=== PATIENT | female | born 1935 | race Caucasian/White ===

== ENCOUNTER 2019-08-18 23:07 | Observation (INO) ==
[2019-08-19 00:25] LABS: Basophils # (auto) 0.05 K/uL (0-0.2); Basophils % (auto) 0.7 %; Eosinophils # (auto) 0.14 K/uL (0-0.5); Eosinophils % (auto) 1.9 %; Hematocrit (blood only) 40.6 % (37-47); Hemoglobin 13.7 g/dL (12.0-16.0); Immature Granulocytes # (auto) 0.02 K/uL (0.00-0.02); Immature Granulocytes % (auto) 0.3 %; Lymphocytes # (auto) 2.27 K/uL (1.2-3.4); Lymphocytes % (auto) 31.4 %; Mean Corpuscular Hemoglobin 31.9 pg (25-34); Mean Corpuscular Hgb Conc 33.7 g/dL (32-36); Mean Corpuscular Volume 94.4 fL (80-100); Mean Platelet Volume 11.1 fL (7.4-10.4); Monocytes # (auto) 0.56 K/uL (0.11-0.59); Monocytes % (auto) 7.7 %; Neutrophils # (auto) 4.19 K/uL (1.4-6.5); Platelet Count 184 K/uL (130-400); RDW Coefficient of Variation 14.8 % (11.5-14.5); RDW Standard Deviation 50.8 fL (36.4-46.3); White Blood Count 7.23 K/uL (4.8-10.8)
[2019-08-19 00:42] LABS: Blood Urea Nitrogen 15 mg/dl (7-18); Calcium 9.4 mg/dl (8.5-10.1); Carbon Dioxide 27 mmol/L (21-32); Chloride 109 mmol/L (98-107); Creatinine Clr Calc Pharmacy 46.4 ml/min; Est GFR (African American) 77.9; Est GFR (Non-African American) 67.2; Glucose 103 mg/dl (70-99); Magnesium 2.2 mg/dl (1.8-2.4); Potassium 3.7 mmol/L (3.5-5.1); Sodium 143 mmol/L (136-145)
[2019-08-19 00:47] LABS: Troponin I < 0.015 ng/ml (0-0.045)
[2019-08-19 00:56] LABS: Appearance Urine Clear (Clear); Bilirubin Urine Negative (Negative); Blood Urine Negative (Negative); Color Urine Yellow; Glucose Urine UA Negative (Negative); Ketones Urine Negative (Negative); Leukocyte Esterase Urine Negative (Negative); Nitrite Urine Negative (Negative); Protein Urine Negative (Negative); Urobilinogen Urine Negative (Negative)
[2019-08-19] MEDS ORDERED: ONDANSETRON INJ 2 MG/ML 2 ML VIAL IV PRN (03:14)
[2019-08-19] MEDS ORDERED: NITROGLYCERIN SL 0.4 MG/TAB TAB SL PRN (03:14)
[2019-08-19] MEDS ORDERED: PNEUMOCOCCAL ADMINISTRATION CHARGE ONE (03:23)
[2019-08-19] MEDS ORDERED: PNEUMOCOCCAL POLYSACCHARIDES 25 MCG/0.5 ML VIAL/SYR IM ONE (03:23)
--- NOTE | 2019-08-19 03:39 | History and Physical Report ---
DATE OF ADMISSION: 08/19/2019 CHIEF COMPLAINT: Chest pain and shortness of breath on exertion. HISTORY OF PRESENT ILLNESS: This is an 84-year-old female with past medical history significant for hyperlipidemia, impaired fasting glucose, hypertension, not on any medications currently, generalized osteoarthritis, osteoporosis, hard of hearing, history of dementia, history of depression, anxiety disorder, history of pulmonary embolism, not on anticoagulation currently, who lives in a senior apartment. She went to a show with her daughter and she said she climbed lot of steps over there and she got exhausted. As per the Emergency Room physician, she complained of chest pain and shortness of breath at that time and EMS was called in and she was hypoxic, requiring oxygen, and she was brought into the hospital. Currently, resting comfortably, hemodynamically stable, and saturating fine on room air. Blood pressure is somewhat running high. Labs are okay. Troponin is negative. EKG shows chronic left bundle branch block. Currently, the patient denies any chest pain, no shortness of breath, no nausea, no vomiting, no abdominal pain, no headache, no dizziness, no blurred vision, no runny nose, no sore throat, no dysphagia. Appetite is okay. Sleeps okay. No rash, no swelling in the legs. Ambulating okay in the ER. Normal bowel and bladder movements. ALLERGIES: TO VICODIN, BACTRIM, DILAUDID, PREDNISONE, SULFA ANTIBIOTICS. PAST MEDICAL HISTORY: As mentioned above. PAST SURGICAL HISTORY: Cataract surgery, colonoscopy with biopsy, cardiac catheterization, appendectomy in 2005 that showed normal appendectomy, tonsillectomy, revision of total hip joint surgery, left total hip replacement, total hysterectomy. MEDICATIONS: The patient is on simvastatin 20 mg p.o. at bedtime, omega fatty acids 1200 mg p.o. daily, aspirin 81 mg p.o. b.i.d., multivitamins daily. FAMILY HISTORY: Significant for father of pneumonia, mother of old age. SOCIAL HISTORY: , lives in a senior apartment. No smoking history. No alcohol use, no drug use. REVIEW OF SYSTEMS: As per HPI. Rest of the review of systems negative. PHYSICAL EXAMINATION: GENERAL: The patient is old and frail, not in acute distress. VITAL SIGNS: Temperature 36.6, pulse 58, respiratory rate 20, blood pressure 177/106, oxygen 98% on room air. HEENT: No pallor, no icterus. Pupils equal, round, and reactive to light. NECK: No JVD, no neck masses, no carotid bruit. CARDIOVASCULAR: S1, S2 heard, regular rate and rhythm. No murmur, no gallop. RESPIRATORY SYSTEM: Normal AP diameter. No accessory muscle use. No wheezing, no crackles. ABDOMEN: Soft, bowel sounds present, nontender. No distention. CENTRAL NERVOUS SYSTEM: Cranial nerves II-XII grossly intact. Nonfocal. EXTREMITIES: No edema, no erythema. LABORATORY DATA: WBC 7.2, hemoglobin 13.7, hematocrit 40.6, platelets 184. Sodium 143, potassium 3.7, chloride 109, bicarbonate 27, BUN 15, creatinine 0.8, serum glucose 103, magnesium 2.2. Troponin I less than 0.015. Urinalysis negative. IMAGING DATA: Chest x-ray, no acute findings. EKG: Left bundle branch block with rate of 61. ASSESSMENT AND PLAN: This is an 84-year-old female who presents with chest pain and shortness of breath on exertion. 1. Chest pain and shortness of breath on exertion. The patient went to a show with her daughter and climbed many steps and states she felt exhausted. She denies chest pain or shortness of breath. As per the ER, at that time she had some chest pain and she was hypoxic, requiring oxygen. Currently stable. Initial workup, EKG shows left bundle branch block which seems to be chronic and troponins are negative. We will observe in tele floor. Serial cardiac enzymes, echocardiogram,. NPO.. Consult cardiology for further recommendations. 2. History of hypertension, not on any medication. Blood pressure is high here, it could be situational. We will monitor. If consistently high, may need blood pressure medication on discharge. Await cardiac input. 3. Hyperlipidemia. Continue statin. Follow lipid profile. 4. History of impaired fasting glucose. We will follow HbA1c levels, currently n.p.o. 5. History of pulmonary emboli. As per the PCP notes questionable hx of PE and was on blood thinners in the past but no longer currently. 6. History of thyroid nodule, follow up with primary care physician. 7. History of depression and anxiety, currently not on any medication. Follow with PCP. 8. Deep venous thrombosis prophylaxis, sequential compression devices. DISPOSITION: Monitor in tele floor. Expect to discharge home and follow with family doctor. Level 1 full code. Addendum: BP running high. Added nitro paste. To monitor. MTDD
--- NOTE | 2019-08-19 04:44 | Emergency Department Note ---
Entered by Josh Olsen acting as a scribe for Pieter Kinney MD ED Provider Note Name: Paty Payne Age: 84 Arrives Via: Walk in Informant: Patient, nurse CC: SOB HPI: The patient is an 84 year old female who presents to the emergency depa rtment with complaints of constant SOB beginning tonight. The patient states that she was going up stairs too fast tonight at a play, and she notes that she became lightheaded and SOB. She also complains of chest heaviness and leg swelling. Per nurse, EMS could not get an oxygen saturation on the patient and she reports that the patient was placed on 6L of oxygen at that time. The patient denies any urinary burning, diarrhea, fever, chills, cough, rhinorrhea, abdominal pain, and back pain. She states that she has a history of UTIs, high cholesterol, and a PE, but she notes that she does not have a history of diabetes, hypertension, and stroke. She reports that her last UTI was four months ago. The patient states that her parents did not have any lung and heart problems. She notes that she takes two baby aspirin a day, and she denies any cigarette use. She reports that she received a flu shot this year. ROS: See above HPI for pertinent positives & negatives. A total of 10 systems reviewed and were otherwise negative. Past Medical History: UTI, high cholesterol, PE Past Surgical History: none Family History: None Social History: Does not use cigarettes, lives alone Home Medications: Aspirin, Simvastatin Allergies: Acetaminophen, hydrocodone, hydromorphone, morphine Physical: Vitals: BP 188/80, Pulse 64, Resp 18, Temp 97.9 F, O2 Sat 99 Exam: GENERAL: Patient is elderly appearing and in minimal distress. EYES: No scleral icterus, unremarkable pupils. ENT: Mucous membranes moist, no nasal congestion. NECK: No masses appreciated, no meningismus, trachea is midline. RESPIRATORY: No dyspnea. No wheeze, no rhonchi. Mild crackles to the bilateral lower lungs. CARDIOVASCULAR: Regular rate and rhythm. No murmurs, rubs, gallops appreciated. GASTROINTESTINAL: Abdomen soft, non-tender, no peritonitis. Bowel sounds positive. No masses appreciated. BACK: No midline tenderness, no CVA tenderness EXTREMITIES: Normal motion all extremities, no cyanosis. Trace edema to the bilateral lower legs. NEUROLOGIC: Alert and oriented, no acute motor or sensory deficits, no focal w eakness, cranial nerves grossly intact. SKIN: No rash, no jaundice, no diaphoresis. ED Course: Prior Medical Record, Triage/Nursing Notes, Medications, Allergies reviewed by Me 2331: The patient was evaluated in room C9. A complete history and physical exam was performed. 0104: Upon reevaluation, the patient is stable. She is noting pressure in her mid throat that does not get better with swallowing. I discussed the findings and the treatment plan with the patient. She expresses agreement and understanding. She is agreeable to hospitalization for cardiac rule out. A rep eat EKG was paged. I spoke with Dr. Coombs of the [facility] Hospitalist Service. The patient will be evaluated for further management. Vital Signs: reviewed and remarkable for HTN Labs: Reviewed and remarkable for wnl Imaging: CHEST X-RAY: X ray results are stated below per my interpretation: Chest: 1 view: No infiltrate, no effusion, normal cardiac border. EKG 1: Per My Interpretation: Indication Shortness of breath: NSR 62 bpm, qtc 477. LBBB. No Ectopy. No Ischemia. Compared to EKG from [facility] 12/17/18, no significant changes other than mild increase in LBBB. Cardiac Monitoring: An Order was placed for continuous cardiac monitoring. Ther monitor shows a rate of 60 with a normal sinus rhythm. Consults: 0104: I reviewed the patient's case with Dr. Coombs - Hospitalist, [facility]. He will evaluate the patient for further management. Blood pressure: Elevated - Will be monitored by hospitalist. Disposition: Hospitalization Differential: Cardiac Ischemia (STEMI, NSTEMI, Unstable Angina, etc), Aortic Dissection, Arrhythmia, Pulmonary Embolism, Pneumonia, Pneumothorax, MSK, Infectious, Pericarditis/Myocarditis, Esophageal Rupture, Gastrointestinal, amongst other pathologies entertained. Medical Decision Making: Pleasant 84 yr old female with no CAD history and just history of DLP and remote history of PE arrives following significant shortness of breath and some chest pain with exertion this evening. No current symptoms. Arrives with EMS with ASA earlier. EMS unable to get O2 sat en route but she has normal sats here. She has no current chest discomfort nor shortness of breath. BP elevated though she notes it is usually low. No evidence of dissection. Symptoms do not seem consistent with PE and without tachy nor hypoxia will hold off on PE scan at this time. Initial trop negative. EKG with LBBB which appears to be in previous EKG from epic system. Will need to come in for cardiac rule out. Impression: Chest pain with exertion, Shortness of breath on exertion Pieter Kinney MD The scribe's documentation has been prepared under my direction and personally reviewed by me in its entirety. I confirm that the note above accurately reflects all work, treatment, procedures, and medical decision making performed by me. Impression & Plan Chest pain on exertion, Shortness of breath on exertion Past Med/Surg History Medical History (Updated 08/19/19 @ 01:22 by Josh Olsen) High cholesterol Pulmonary embolism UTI (urinary tract infection) Family History (Updated 08/19/19 @ 00:33 by Josh Olsen) Other No significant family history Social History (Updated 08/19/19 @ 00:33 by Josh Olsen) Preferred Language: Ukrainian Communication Ability: Effective Study Director Required: No Current Living Situation: Alone Other Information That Helps Us Care for You: No Feels Safe at Home: Yes Safety Concerns: Feels Safe At This Time Smoking Status: Never smoker Hx Alcohol Use: No Results & Data Vital Signs Vital Signs - 24 hr 08/18/19 23:00 08/18/19 23:35 08/19/19 00:43 Temperature 36.6 C Temperature Source Oral Pulse Rate 64 Pulse Rate [Apical] 59 L Pulse Rhythm [Apical] Regular Respiratory Rate 18 16 Respiratory Effort / Characteristics Non-Labored Spontaneous Non-Labored Spontaneous Respiratory Depth Normal Normal Respiratory Pattern Regular Blood Pressure 188/80 H Blood Pressure [Right Arm] 159/87 H Blood Pressure Mean 116 Blood Pressure Mean [Right Arm] 111 Blood Pressure Position Sitting Blood Pressure Position [Right Arm] Lying Pulse Oximetry 95 99 99 Oxygen Delivery Method Room Air Room Air Room Air Sepsis Recent Fever Within 48 Hours No Sepsis New/Unexplained Change in Mental Status No Sepsis Action Taken by Nursing No Action Required 08/19/19 02:00 Temperature Temperature Source Pulse Rate Pulse Rate [Apical] 58 L Pulse Rhythm [Apical] Respiratory Rate 20 Respiratory Effort / Characteristics Non-Labored Spontaneous Respiratory Depth Normal Respiratory Pattern Blood Pressure Blood Pressure [Right Arm] 177/106 H Blood Pressure Mean Blood Pressure Mean [Right Arm] 129 Blood Pressure Position Blood Pressure Position [Right Arm] Sitting Pulse Oximetry 98 Oxygen Delivery Method Room Air Sepsis Recent Fever Within 48 Hours Sepsis New/Unexplained Change in Mental Status Sepsis Action Taken by [facility] Medications Current Medication List: was personally reviewed by me Laboratory Data Attestation: I reviewed the patient's lab results. Result diagrams: 08/19/19 00:10 08/19/19 00:10 Lab Results 08/19/19 08/19/19 08/19/19 Range/Units 00:10 00:10 00:42 WBC 7.23 (4.8-10.8) K/uL RBC 4.30 (4.2-5.4) M/uL Hgb 13.7 (12.0-16.0) g/dL Hct 40.6 (37-47) % MCV 94.4 (80-100) fL MCH 31.9 (25-34) pg MCHC 33.7 (32-36) g/dL RDW Std Deviation 50.8 H (36.4-46.3) fL RDW Coeff of Brittanie 14.8 H (11.5-14.5) % Plt Count 184 (130-400) K/uL MPV 11.1 H (7.4-10.4) fL Immature Gran % (Auto) 0.3 % Neut % (Auto) 58.0 % Lymph % (Auto) 31.4 % [place] % (Auto) 7.7 % Eos % (Auto) 1.9 % Baso % (Auto) 0.7 % Immature Gran # (Auto) 0.02 (0.00-0.02) K/uL Neut # (Auto) 4.19 (1.4-6.5) K/uL Lymph # (Auto) 2.27 (1.2-3.4) K/uL [place] # (Auto) 0.56 (0.11-0.59) K/uL Eos # (Auto) 0.14 (0-0.5) K/uL Baso # (Auto) 0.05 (0-0.2) K/uL Sodium 143 (136-145) mmol/L Potassium 3.7 (3.5-5.1) mmol/L Chloride 109 H (98-107) mmol/L Carbon Dioxide 27 (21-32) mmol/L Anion Gap 7.0 (3-11) BUN 15 (7-18) mg/dl Creatinine 0.80 (0.6-1.2) mg/dl Est Cr Clr Drug Dosing 46.4 ml/min Est GFR ( Amer) 77.9 Est GFR (Non-Af Amer) 67.2 BUN/Creatinine Ratio 19.0 (10-20) Glucose 103 H (70-99) mg/dl Calcium 9.4 (8.5-10.1) mg/dl Magnesium 2.2 (1.8-2.4) mg/dl Troponin I < 0.015 (0-0.045) ng/ml Urine Color Yellow Urine Appearance Clear (Clear) Urine pH 7.0 (4.5-7.5) Ur Specific [place] 1.010 (1.000-1.030) Urine Protein Negative (Negative) Urine Glucose (UA) Negative (Negative) Urine Ketones Negative (Negative) Urine Blood Negative (Negative) Urine Nitrite Negative (Negative) Urine Bilirubin Negative (Negative) Urine Urobilinogen Negative (Negative) Ur Leukocyte Esterase Negative (Negative) Discharge Plan Visit Data *Final* Discharge Date/Time: 08/19/19 02:59 Chief Complaint: Shortness of Breath/Dyspnea Stated Complaint: SHORT OF BREATH ED Provider: Pieter Kinney Discharge Problem: Chest pain on exertion, Shortness of breath on exertion Patient Disposition: Admitted As Inpatient Discharge Instructions Interventions: ED Discharge Assessment Last Done: 08/19/19 02:59 The scribe's documentation has been prepared under my direction and personally reviewed by me in its entirety. I confirm that the note above accurately reflects all work, treatment, procedures, and medical decision making performed by me.
[2019-08-19] MEDS ORDERED: NITROGLYCERIN 2% OINTMENT 30GM TUBE EXT SCH (06:15)
--- NOTE | 2019-08-19 06:28 | XRay Report ---
XR chest 1V portable HISTORY: 84 years-old Female CP acute atypical chest pain COMPARISON: None available TECHNIQUE: Portable AP view of the chest FINDINGS: Cardiac silhouette is mildly enlarged. There is no pneumothorax or overt pulmonary edema. Minimal ill -defined left basilar opacities. There is blunting of the costophrenic angles. Lungs are mildly hyper inflated. No lobar airspace consolidation. Degenerative changes of the shoulders and spine. IMPRESSION: 1. Cardiomegaly without overt pulmonary edema. 2. Blunting of the costophrenic angles may be secondary to atelectasis versus trace effusions. ACT 112: Negative or not required by law. The above report was generated using voice recognition software. It may contain grammatical, syntax o r spelling errors. Electronically signed by: Mauricio Jones M.D. 08/19/2019 6:27 AM
[2019-08-19 07:04] LABS: Chol HDL Ratio 3; Cholesterol 143 mg/dl (0-200); HDL Cholesterol 58 mg/dl; LDL Cholesterol Calculated 69 mg/dl; Triglycerides 80 mg/dl (0-150); VLDL Cholesterol 16 mg/dl
[2019-08-19] MEDS ORDERED: CEROVITE ADV FORMULA TAB PO SCH (09:00)
[2019-08-19] MEDS ORDERED: ASPIRIN 81 MG ECTAB PO SCH (09:00)
[2019-08-19 09:28] LABS: Estimated Average Glucose 126 mg/dl
[2019-08-19] MEDS ORDERED: LOSARTAN POTASSIUM 25 MG TAB PO SCH (10:30)
--- NOTE | 2019-08-19 16:49 | Discharge Summary ---
Date of Service August 19, 2019 Admission HPI Per Admitting Provider This is an 84-year-old female with past medical history significant for hyperlipidemia, impaired fasting glucose, hypertension, not on any medications currently, generalized osteoarthritis, osteoporosis, hard of hearing, history of dementia, history of depression, anxiety disorder, history of pulmonary embolism, not on anticoagulation currently, who lives in a senior apartment. She went to a show with her daughter and she said she climbed lot of steps over there and she got exhausted. As per the Emergency Room physician, she complained of chest pain and shortness of breath at that time and EMS was called in and she was hypoxic, requiring oxygen, and she was brought into the hospital. Currently, resting comfortably, hemodynamically stable, and saturating fine on room air. Blood pressure is somewhat running high. Labs are okay. Troponin is negative. EKG shows chronic left bundle branch block. Currently, the patient denies any chest pain, no shortness of breath, no nausea, no vomiting, no abdominal pain, no headache, no dizziness, no blurred vision, no runny nose, no sore throat, no dysphagia. Appetite is okay. Sleeps okay. No rash, no swelling in the legs. Ambulating okay in the ER. Normal bowel and bladder movements. Admission Exam Per Admitting Provider GENERAL: The patient is old and frail, not in acute distress. VITAL SIGNS: Temperature 36.6, pulse 58, respiratory rate 20, blood pressure 177/106, oxygen 98% on room air. HEENT: No pallor, no icterus. Pupils equal, round, and reactive to light. NECK: No JVD, no neck masses, no carotid bruit. CARDIOVASCULAR: S1, S2 heard, regular rate and rhythm. No murmur, no gallop. RESPIRATORY SYSTEM: Normal AP diameter. No accessory muscle use. No wheezing, no crackles. ABDOMEN: Soft, bowel sounds present, nontender. No distention. CENTRAL NERVOUS SYSTEM: Cranial nerves II-XII grossly intact. Nonfocal. EXTREMITIES: No edema, no erythema. Principal Diagnosis Chest pain (not ACS) Discharge Exam GENERAL: Elderly and frail female sitting in bed , not in acute distress HEENT: NC/AT. No pallor, no icterus. Pupils equal, round, and reactive to light, EOMI NECK: No JVD, no neck masses, no carotid bruit. CARDIOVASCULAR: S1, S2 heard, regular rate and rhythm. No murmur, no gallop. RESPIRATORY SYSTEM: Normal AP diameter. No accessory muscle use. No wheezing, no crackles. ABDOMEN: Soft, bowel sounds present, nontender. No distention. CENTRAL NERVOUS SYSTEM: Alert and oriented x3, no facial asymmetry, speech fluent, moves extremities spontaneously EXTREMITIES: No edema, no erythema, moves extremities spontaneously Discharge Data Allergies Allergy/AdvReac Type Severity Reaction Status Date / Time acetaminophen [From Vicodin] Allergy Severe Vomiting Verified 08/19/19 01:48 hydrocodone [From Vicodin] Allergy Severe Vomiting Verified 08/19/19 01:48 hydromorphone [From Dilaudid] Allergy Severe Vomiting Verified 08/19/19 01:48 morphine Allergy Severe Vomiting Verified 08/19/19 01:48 Consultations 08/19/19 01:04 ED Decision to Admit Stat 08/19/19 03:14 Consult Case Management - Discharge Planning Routine 08/19/19 08:00 Consult Cardiology Routine Hospital Course (1) Chest pain on exertion: (2) Shortness of breath on exertion: (3) Left bundle branch block: (4) Physical deconditioning: This is an 84-year-old female who presents with chest pain and shortness of breath on exertion, not ACS, likely d/t physical deconditioning. Hx of LBBB. 1. Chest pain and shortness of breath on exertion. The patient went to a show with her daughter and climbed many steps and states she felt exhausted. She currently denies chest pain or shortness of breath. As per the ER, at that time she had some chest pain and she was hypoxic, requiring oxygen. Currently stable. Initial workup, EKG shows left bundle branch block which seems to be chronic and troponins are negative. observed on telemetry Serial cardiac enzymes - negative Echocardiogram obtained - normal LV syst. function, EF 60-65%, Grade 1 diastolic dysfunction. No significant valvular abnormality. Septal wall motion abnormality c/w LBBB, no other wall motion abnormality. Cardiology consulted for further recommendations - not ACS, recommend to follow up w/ PCP, PT 2. History of hypertension, not on any medication. Blood pressure is high here, it could be situational. We will monitor. If consistently high, may need blood pressure medication on discharge. Await cardiac input. 3. Hyperlipidemia. Continue statin. Follow lipid profile. 4. History of impaired fasting glucose. will monitor while inpt. 5. History of pulmonary emboli. As per the PCP notes questionable hx of PE and was on blood thinners in the past but no longer currently. 6. History of thyroid nodule, follow up with primary care physician. 7. History of depression and anxiety, currently not on any medication. Follow with PCP. 8. Deep venous thrombosis prophylaxis, sequential compression devices. Total Time Total Time Spent Total Time Spent (In Minutes): 40 Total Time Includes: Examination of the Patient, Discharge Planning, Medication Reconciliation and Communication With Other Providers Discharge Plan Discharge Items Patient Disposition: Home - Self-Care Reason For Visit: CHEST PAIN Discharge Diagnosis: Chest pain Activity: Resume your previous activity Activity Comment: as tolerated, ask for help as needed Non-emergency contact: Primary Care Provider Call non-emergency contact if: you have any medication questions and your symptoms worsen Follow-up/Referrals: Jakob Will MD [Primary Care Provider] - None Diet: Regular Addtl Attending Provider Instructions: Follow up with your primary care provider on 08/26/2019 at 12:45 AM. Check your blood pressure at home and keep a log of these numbers. Make sure to bring this log to your primary care doctor to your next appointment, so your blood pressure medications can be adjusted. Take new medication - Losartan, daily, for your blood pressure. Pending Studies at Discharge: No Stand-Alone Forms: My [facility] Medialive, Smoking Cessation Medications and DC Order Prescriptions: New losartan 25 mg Tablet 25 mg PO QAM 30 Days Qty: 30 RF: 0 Continued simvastatin 20 mg tablet 20 mg PO QPM RF: 0 omega-3 fatty acids [Fish Oil Concentrate] 1,000 mg capsule 1,000 mg PO BID RF: 0 Centrum Silver 0.4-300-250 mg-mcg-mcg tablet 1 tab PO DAILY RF: 0 aspirin 81 mg Tablet,Delayed Release (Dr/Ec) 81 mg PO AMPM RF: 0 Discharge Orders: Discharge Order (Routine); Ordered 08/19/19 Ordered By: Joshua Torrez/Other Patient Handouts: A1C Admission Data Admit Date/Time: 08/19/19 02:21 Attending Provider: Joshua Valentin Admit Provider: Michi Coombs Primary Care Provider: Jakob Will Other Providers: Michi Coombs ; Lino Chaparro ; Hesham Mccullough ; Antonino Chamorro ; Bandar Jc ; Christopher Martins ; Keven Adams ; Nery Haskins ; Brittney Rivas ; Genaro Cortes Other Interventions: Discharge Summary Assessment (RN) Last Done: 08/19/19 16:51 DC Date/Time DO NOT enter until pt leaves facility: 08/19/19 17:38
--- NOTE | 2019-08-19 17:23 | Cardiology Consultation ---
Date of Consultation August 19, 2019 Assessment & Plan (1) Shortness of breath on exertion: (2) Left bundle branch block: (3) Physical deconditioning: I do not believe that the patient's presenting symptoms represent an acute cardiac event. The patient is very inactive at baseline and admits that she had walked very briskly which she is not accustomed to. She is now without complaint and voices desire for no further cardiac work-up. 2D echocardiogram shows normal LV systolic function and no further cardiac testing or intervention will be performed at this time. Patient does have a longstanding history of left bundle branch block there is never been worked up in the past, however, her LV systolic function is preserved No cardiac follow-up is indicated at this time. Okay to discharge to home from a cardiac standpoint. Recommend follow-up with PCP as outpatient and consideration may be given to physical therapy for her deconditioning. History of Present Illness Reason for Consultation: Dyspnea Requesting Physician: Dr. Coombs Attending Physician: Joshua Valentin MD History of Present Illness It was my pleasure to see Mrs. Payne in consultation today August 19, 2019. She is a very pleasant and an active 84-year-old woman who presented to [facility] on the evening of 08/18/2019 after an episode of dyspnea. Patient states that she was out to see a show with her daughter and after the shoulder let out she had to walk very briskly to keep up with the crowd upon exiting the theater. She states that this was much faster than she is accustomed to walking and she became very tired and worn out very quickly. EMS was summoned and she was provided oxygen therapy and transported to the emergency department. Chart review states that the patient mentioned chest discomfort occurring at the time of the event, however, upon direct questioning at this time the patient denies experiencing any chest pain or list does not remember experiencing any. She states now she feels fine just a little tired from the event. She states that she is not interested in significant cardiac work-up at this time and believes that she just had to move too fast. Allergies Allergy/AdvReac Type Severity Reaction Status Date / Time acetaminophen [From Vicodin] Allergy Severe Vomiting Verified 08/19/19 01:48 hydrocodone [From Vicodin] Allergy Severe Vomiting Verified 01/29/20 01:48 hydromorphone [From Dilaudid] Allergy Severe Vomiting Verified 08/19/19 01:48 morphine Allergy Severe Vomiting Verified 08/19/19 01:48 Home Medications Home Medications Medication Instructions Recorded Confirmed Type [id number] acid 0.4 1 tab PO DAILY 07/09/19 08/19/19 History mg-lycopene 300 mcg-lutein 250 mcg tablet omega-3 fatty acids 1,000 mg 1,000 mg PO BID cap 07/09/19 08/19/19 History capsule simvastatin 20 mg tablet 20 mg PO QPM 07/09/19 08/19/19 History aspirin 81 mg PO AMPM 08/19/19 08/19/19 History losartan 25 mg PO QAM 30 Days #30 tab 08/19/19 Rx Patient History Medical History High cholesterol Pulmonary embolism UTI (urinary tract infection) Family History Other No significant family history Social History Preferred Language: [place] Communication Ability: Effective Toeing Stockings Required: No Current Living Situation: Alone Other Information That Helps Us Care for You: No Feels Safe at Home: Yes Safety Concerns: Feels Safe At This Time Smoking Status: Never smoker Hx Alcohol Use: No Review of Systems Review of Systems: All systems reviewed & are unremarkable except as noted in HPI & below Physical Exam Physical Exam: General: Awake, alert and oriented x 3. No acute distress. HEENT: Normocephalic, atraumatic. Pupils equal, round and reactive to light and accommodation. Extraocular muscles are intact. Anicteric sclera. Moist mucous membranes. Neck: No JVD. No bruit. Cardiovascular: Regular. Positive S-4. Normal S-1 and S-2. No S-3. No murmurs or rubs. Pulmonary: Clear to auscultation B/L. No rales, rhonchi or wheezing Abdomen: Bowel sounds x 4, soft. No rebound, guarding or tenderness. No organomegaly. Extremities: No clubbing, cyanosis or edema. +2 pedal pulses bilaterally. Skin: Warm and dry. Results & Data Vital Signs (Past 12 Hours) Vital Signs Temp Pulse Pulse Resp BP Pulse Ox 08/19/19 16:51 36.6 C 67 18 154/70 H 99 08/19/19 15:06 36.6 C 67 18 154/70 H 99 08/19/19 11:26 36.7 C 60 18 149/65 H 98 08/19/19 08:09 36.6 C 72 16 151/76 H 97 08/19/19 08:08 55 L
--- NOTE | 2019-08-19 17:47 | Electrocardiogram Report ---
Test Reason : Blood Pressure : / mmHG Vent. Rate : 062 BPM Atrial Rate : 062 BPM P-R Int : 182 ms QRS Dur : 132 ms QT Int : 470 ms P-R-T Axes : 017 -45 060 degrees QTc Int : 477 ms Normal sinus rhythm Left axis deviation Left bundle branch block Abnormal ECG No previous ECGs available Confirmed by Elier Romeo ([id number]) on 08/19/2019 5:46:55 PM Referred By: REFERRED SELF Confirmed By:Cj Romeo
--- NOTE | 2019-08-19 17:49 | Electrocardiogram Report ---
Test Reason : Blood Pressure : / mmHG Vent. Rate : 061 BPM Atrial Rate : 061 BPM P-R Int : 000 ms QRS Dur : 134 ms QT Int : 494 ms P-R-T Axes : 000 -48 054 degrees QTc Int : 497 ms Sinus rhythm Left axis deviation Left bundle branch block Abnormal ECG When compared with ECG of 18-AUG-2019 23:21, (unconfirmed) no change Confirmed by Elier Romeo ([id number]) on 08/19/2019 5:48:47 PM Referred By: REFERRED SELF Confirmed By:Cj Romeo
[2019-08-19] MEDS ORDERED: SIMVASTATIN 20 MG TAB PO SCH (21:00)
== END 2019-08-19 17:38 | disposition home or self-care (01) ==
LOC: 2S 23:07 → ED 23:07 → 2S 08-19 02:59